=== PATIENT | female | born 1990 | race African-American/Black ===

== ENCOUNTER 2017-06-12 11:02 | Emergency (ER) | payer OTHER ==
[~2017-06-12] VITALS: Ht 162.6 cm; Wt 49.6 kg
[~2017-06-12 11:02] MED LIST: CIPROFLOXACIN500 M1 PO; MACROBID 100 M100 M1 PO; METROGEL-VAGINA70 GM VG; NAPROSYN500 MG PO; NAPROXEN 500MG500 MG PO; NOHOMEMEDICATIONS
[2017-06-12] MEDS ORDERED: SYNTHROID150 MCG PO (11:15)
[2017-06-12 11:48] LABS: URINE BILIRUBIN NEGATIVE (Negative); URINE BLOOD NEGATIVE (Negative); URINE CLARITY CLEAR; URINE COLOR YELLOW; URINE GLUCOSE-RANDOM* NEGATIVE (Negative); URINE KETONES TRACE (Negative); URINE LEUKOCYTES NEGATIVE (Negative); URINE NITRITE NEGATIVE (Negative); URINE PROTEIN (DIPSTICK) TRACE (Negative); URINE SPECIFIC GRAVITY >= 1.030 (1.005-1.035); URINE UROBILINOGEN 0.2 E.U./dl (0.2-1.0)
[2017-06-12 11:51] LABS: CALCIUM 9.3 mg/dL (8.5-10.1); POTASSIUM 4.5 mmol/L (3.5-5.1)
[2017-06-12 11:56] LABS: ALBUMIN 3.8 g/dL (3.4-5.0); TOTAL BILIRUBIN 0.5 mg/dL (<0.1-1.0); TOTAL PROTEIN 8.2 g/dL (6.4-8.2)
[2017-06-12] MEDS ORDERED: COLACE100 MG PO (12:22)
== END 2017-06-12 12:37 | disposition home or self-care (01) ==
LOC: ER 11:02
PROVIDERS: Nurse Practitioner
DX: K59.00 Constipation, unspecified (principal); K21.9 Gastro-esophageal reflux disease without esophagitis; Z88.1 Allergy status to other antibiotic agents

== ENCOUNTER 2017-09-30 12:12 | Emergency (ER) | payer OTHER ==
[~2017-09-30] VITALS: Ht 162.6 cm; Wt 52.2 kg
[~2017-09-30 12:12] MED LIST changes: +COLACE100 MG PO; +SYNTHROID150 MCG PO
[2017-09-30 12:16] VITALS: BP 113/81
[2017-09-30 12:50] LABS: URINE BILIRUBIN NEGATIVE (Negative); URINE BLOOD 1+ (Negative); URINE CLARITY CLEAR; URINE COLOR YELLOW; URINE GLUCOSE-RANDOM* NEGATIVE (Negative); URINE KETONES NEGATIVE (Negative); URINE PROTEIN (DIPSTICK) NEGATIVE (Negative); URINE SPECIFIC GRAVITY >= 1.030 (1.005-1.035); URINE UROBILINOGEN 0.2 E.U./dl (0.2-1.0)
[2017-09-30 12:52] LABS: URINE LEUKOCYTES-REFLEX TRACE (Negative); URINE NITRITE-REFLEX POSITIVE (Negative)
[2017-09-30 12:59] LABS: BACTERIA-REFLEX >30 Many /HPF (None Seen); CASTS None Seen /LPF (None Seen); SQUAMOUS 4-10 Moderate /LPF (0-3)
[2017-09-30 13:00] LABS: CRYSTALS None Seen /LPF (None Seen); URINE RBC 0-2 Rare /HPF (0-2); URINE WBC-REFLEX 6-15 Few /HPF (0-5)
[2017-09-30] MEDS ORDERED: KEFLEX500 M1 PO (13:07)
[2017-10-05 18:11] LABS: NEISSERIA GONORRHEA-PCR Negative (Negative)
== END 2017-09-30 13:10 | disposition home or self-care (01) ==
LOC: ER 12:12
PROVIDERS: Physician Assistant
DX: N72 Inflammatory disease of cervix uteri (principal); N39.0 Urinary tract infection, site not specified; K21.9 Gastro-esophageal reflux disease without esophagitis; Z88.2 Allergy status to sulfonamides; Z88.8 Allergy status to other drugs, medicaments and biological substances

== ENCOUNTER 2018-09-02 18:53 | Emergency (ER) | payer OTHER ==
[~2018-09-02] VITALS: Ht 162.6 cm; Wt 57.1 kg
[~2018-09-02 18:53] MED LIST changes: +KEFLEX500 M1 PO
[2018-09-02] MEDS ORDERED: SYNTHROID88 MCG PO (19:04)
[2018-09-02 19:16] LABS: URINE BILIRUBIN NEGATIVE (Negative); URINE BLOOD NEGATIVE (Negative); URINE CLARITY CLEAR; URINE COLOR YELLOW; URINE GLUCOSE-RANDOM* NEGATIVE (Negative); URINE KETONES NEGATIVE (Negative); URINE LEUKOCYTES-REFLEX TRACE (Negative); URINE NITRITE-REFLEX NEGATIVE (Negative); URINE PROTEIN (DIPSTICK) NEGATIVE (Negative); URINE SPECIFIC GRAVITY 1.015 (1.005-1.035)
[2018-09-02] MEDS ORDERED: NAPROSYN500 MG PO (20:29)
[2018-09-02 20:40] VITALS: BP 124/78
== END 2018-09-02 20:41 | disposition home or self-care (01) ==
LOC: ER 18:53
PROVIDERS: Physician Assistant
DX: R10.32 Left lower quadrant pain (principal); R42 Dizziness and giddiness; K21.9 Gastro-esophageal reflux disease without esophagitis; Z88.2 Allergy status to sulfonamides; Z88.8 Allergy status to other drugs, medicaments and biological substances

== ENCOUNTER 2020-09-14 07:38 | Emergency (ER) | payer OTHER ==
[~2020-09-14] VITALS: Ht 162.6 cm; Wt 63.5 kg
[~2020-09-14 07:38] MED LIST changes: +SYNTHROID88 MCG PO
[2020-09-14 08:08] LABS: BASOPHILS 0.4 % (0.0-2.0); EOSINOPHILS 0.3 % (0.0-3.0); HEMATOCRIT 35.1 % (37.0-47.0); HEMOGLOBIN 11.3 gm/dL (12.0-15.0); LYMPHOCYTES 7.6 % (24.0-44.0); MCH 26.4 pg (26.0-34.0); MCHC 32.2 g/dL (28.0-37.0); MCV 81.9 fL (80.0-100.0); MONOCYTES 3.4 % (1.0-8.0); PLATELET COUNT 310 thou/uL (150-400); POLYS 88.3 % (36.0-66.0); RBC 4.29 mil/uL (4.20-5.00); RDW 16.6 % (10.5-14.5); WBC 12.4 thou/uL (4.0-11.0)
[2020-09-14 08:19] LABS: CALCIUM 9.4 mg/dL (8.5-10.1); CREATININE 1.1 mg/dL (0.6-1.0); POTASSIUM 4.2 mmol/L (3.5-5.1)
[2020-09-14 08:25] LABS: ALBUMIN 3.9 g/dL (3.4-5.0); DIRECT BILIRUBIN 0.1 mg/dL (<0.1-0.2); TOTAL BILIRUBIN 0.4 mg/dL (0.2-1.0); TOTAL PROTEIN 8.4 g/dL (6.4-8.2)
[2020-09-14 09:21] LABS: URINE BILIRUBIN NEGATIVE (Negative); URINE BLOOD 2+ (Negative); URINE CLARITY CLOUDY; URINE COLOR YELLOW; URINE GLUCOSE-RANDOM* NEGATIVE (Negative); URINE KETONES TRACE (Negative); URINE LEUKOCYTES-REFLEX 3+ (Negative); URINE NITRITE-REFLEX NEGATIVE (Negative); URINE PROTEIN (DIPSTICK) 1+ (Negative); URINE SPECIFIC GRAVITY 1.025 (1.005-1.035); URINE UROBILINOGEN 0.2 E.U./dl (0.2-1.0)
[2020-09-14 09:28] LABS: CASTS None Seen /LPF (None Seen); MUCUS >6 Heavy strn/LPF (None Seen); SQUAMOUS >10 Many /LPF (0-3)
[2020-09-14 09:30] LABS: CRYSTALS None Seen /LPF (None Seen); URINE RBC 1-2 Rare /HPF (NONE SEEN); WBC CLUMPS Occasional (None Seen)
[2020-09-14 10:04] VITALS: BP 117/76
[2020-09-14] MEDS ORDERED: KEFLEX750 MG PO (10:19)
[2020-09-14] MEDS ORDERED: IBUPROFEN 800800 M1 PO (10:19)
== END 2020-09-14 11:00 | disposition home or self-care (01) ==
LOC: ER 07:38
PROVIDERS: Emergency Medicine
DX: N39.0 Urinary tract infection, site not specified (principal); D25.9 Leiomyoma of uterus, unspecified; N83.201 Unspecified ovarian cyst, right side; K21.9 Gastro-esophageal reflux disease without esophagitis; Z88.2 Allergy status to sulfonamides

== ENCOUNTER 2021-02-27 10:09 | Emergency (ER) | payer OTHER ==
[~2021-02-27] VITALS: Ht 162.6 cm; Wt 62.6 kg
[~2021-02-27 10:09] MED LIST changes: +IBUPROFEN 800800 M1 PO; +KEFLEX750 MG PO
[2021-02-27 12:21] LABS: ABSOLUTE NEUTROPHILS 7.1 thou/uL (1.4-8.2); BASOPHILS 0.4 % (0.0-2.0); HEMATOCRIT 36.3 % (37.0-47.0); HEMOGLOBIN 11.6 gm/dL (12.0-15.0); MCH 26.4 pg (26.0-34.0); MCHC 31.9 g/dL (28.0-37.0); MCV 82.8 fL (80.0-100.0); MONOCYTES 3.2 % (1.0-8.0); PLATELET COUNT 289 thou/uL (150-400); POLYS 86.4 % (36.0-66.0); RBC 4.38 mil/uL (4.20-5.00); WBC 8.2 thou/uL (4.0-11.0)
[2021-02-27 12:23] LABS: CALCIUM 9.5 mg/dL (8.5-10.1); CREATININE 0.8 mg/dL (0.6-1.0)
[2021-02-27 12:25] LABS: POTASSIUM 4.8 mmol/L (3.5-5.1)
[2021-02-27 12:29] LABS: ALBUMIN 3.9 g/dL (3.4-5.0); TOTAL BILIRUBIN 0.2 mg/dL (0.2-1.0)
[2021-02-27 12:58] LABS: URINE BILIRUBIN NEGATIVE (Negative); URINE BLOOD TRACE (Negative); URINE CLARITY SL CLOUDY; URINE COLOR YELLOW; URINE GLUCOSE-RANDOM* NEGATIVE (Negative); URINE KETONES 1+ (Negative); URINE LEUKOCYTES-REFLEX NEGATIVE (Negative); URINE PROTEIN (DIPSTICK) NEGATIVE (Negative); URINE UROBILINOGEN 0.2 E.U./dl (0.2-1.0)
[2021-02-27 13:01] LABS: URINE NITRITE-REFLEX POSITIVE (Negative)
[2021-02-27 13:26] LABS: SQUAMOUS >10 Many /LPF (0-3)
[2021-02-27 13:30] LABS: BACTERIA-REFLEX >30 Many /HPF (None Seen); CASTS None Seen /LPF (None Seen); CRYSTALS None Seen /LPF (None Seen); URINE RBC 1-2 Rare /HPF (NONE SEEN); URINE WBC-REFLEX 6-15 Few /HPF (0-5)
[2021-02-27 14:45] VITALS: BP 110/73
== END 2021-02-27 14:51 | disposition short-term general hospital (02) ==
LOC: ER 10:09
PROVIDERS: Emergency Medicine
DX: O00.90 Unspecified ectopic pregnancy without intrauterine pregnancy (principal); K21.9 Gastro-esophageal reflux disease without esophagitis; Z88.2 Allergy status to sulfonamides; Z79.899 Other long term (current) drug therapy; Z3A.01 Less than 8 weeks gestation of pregnancy